=== PATIENT | female | born 1995 ===

== ENCOUNTER 2017-08-25 17:58 | Inpatient (IN) | payer OTHER ==
[~2017-08-25] VITALS: Ht 175.3 cm; Wt 63.4 kg
[~2017-08-25 17:58] MED LIST: Z.0.NO CURRENT MEDS
[2017-08-26 02:30] VITALS: BP 126/65; PULSE 101; RESP 16; TEMP 97.7; O2SAT 98
[2017-08-26 06:00] VITALS: BP 96/50; PULSE 104; RESP 16; TEMP 98; O2SAT 100
[2017-08-26 11:59] VITALS: BP 110/56; PULSE 107; RESP 17; TEMP 98.2; O2SAT 99
[2017-08-26] MEDS: MULTIVIT/MIN/PREN/FOL AC/IRON PRENATAL TAB PO SCH (12:45)
[2017-08-26] MEDS ORDERED: ACETAMINOPHEN 325 MG TAB PO PRN (12:45)
--- NOTE | 2017-08-26 12:47 | HHI.HP ---
Provisional Diagnosis Admission Date Aug 26, 2017 at 02:30 [place] I. Schizophrenia Certification of Person's Competence To Provide Express and Informed Consent I have personally examined Janelle Dickson , a person being served at [facility] on, Aug 26, 2017 12:42. Express and informed consent means consent voluntarily given in writing, by a competent person, after sufficient explanation and disclosure of the subject matter involved to enable the person to make a knowing and willful decision without any element of force, fraud, deceit, duress, or other form of constraint or coercion. This person is 18 years of age or older, is not now known to be incompetent to consent to treatment with a guardian advocate, and does not have a health care surrogate or proxy currently making medical treatment decisions. I have found this person to be one of the following: [] Competent to provide express and informed consent, as defined above, for voluntary admission to this facility and is competent to provide express and informed consent for treatment. He/she has the consistent capacity to make well reasoned, willful, and knowing decisions concerning his or her medical or mental health treatment. The person fully and consistently understands the purpose of the admission for examination/placement and is fully capable of personally exercising all rights assured under [place]xxx] Incompetent to provide express and informed consent to voluntary admission , and this is incompetent to provide express and informed consent to treatment. The person must be transferred to involuntary status and a petition for a guardian advocate filed with the Circuit Court. [] Refusing to provide express and informed consent to voluntary admission but is competent to provide express and informed consent for treatment. The person must be discharged or transferred to involuntary status. Form shall be completed within 24 hours of a person's arrival at the receiving facility and filed in the clinical record of each person: 1. Admitted on a voluntary basis 2. Permitted to provide express and informed consent to his/her own treatment 3. Allowed to transfer from involuntary to voluntary status 4. Prior to permitting a person to consent to his or her own treatment after having been previously found incompetent to consent to treatment. History of Present Illness Capacity: Has Capacity (for medications) HPI Patient is a 22 y/o Irish woman, single, has one child who lives with the child's father, unemployed on SSI, previously homeless recently living with aunt, past psychiatric history of schizophrenia, multiple psychiatric admissions , prior suicide attempts, history of aggressive behavior, who was brought in under [place] Act for auditory hallucinations, responding to internal stimuli, endorsing suicidal ideations which she was admitted to the inpatient psychiatry unit for further evaluation and management. As per [place] act, patient endorsing auditory hallucinations, responding to internal stimuli, states "just want to rest in peace", passive SI, noncompliant with medications and follow up. Patient was found lying on hospital bed, calm and superficially cooperative and noted to be somewhat irritable during interview. Patient states that she had been living in the streets for 6 years and recently moved in with her aunt several weeks ago and states that she didn't feel comfortable there. She reports having left the aunt's home two days ago walked out of the house in [place] and had called 911 which brought her to the hospital. She states having had SI recently but also states wanting to be "comfortable...I don't have any money". When asked about perceptual disturbances she states "I don't know" but noted to be internally preoccupied and also endorsing paranoid delusions. Collateral information was obtained from patient's mother, Nena Leon, who is patient's payee. She states that recently the patient had been having "hallucinations and has been out of it". she mentions that the patient had been staying with her sister and recently they had an argument about smoking cigarettes when the patient left the home walking. She mentions that [place] '[place] and were concerned for the patient's safety, especially being and called 911. Family psychiatric history: "I don't know" Past psychiatric history: prior psychiatric diagnosis of schizophrenia, multiple psychiatric admissions, previous suicide attempts, recent treatment include haldol decanoate 100-150mg every 3-4 weeks but most recently 100mg [id number], last received in July @ [facility]. Substance use history: mauro Past medical history: currently 24 weeks Allergies: NKDA Social history: single, has one child who lives with the child's father, unemployed on SSI (mother is payee), recently living with aunt but homeless prior. Review of Systems Except as stated in HPI: all other systems reviewed are Neg Past Psych History Violence risk - others (6 mos) elevated due to history of aggressive behavior Violence risk - self (6 mos) elevated due to current SI Substance Abuse History Drugs/Alcohol past 12 months denies Past Family Social History Coded Allergies: No Known Allergies (Unverified Allergy, Unknown, 08/26/17) Reported Medications Miscellaneous (No Current Meds) Misc 10/23/11 Current Medications Medications (Trade) Dose Ordered Sig/Chel Route Start Time Stop Time Status Last Admin (Flu (Quadrivalent) Vaccine Inj) 0.5 ml ONCE ONCE IM 08/27/17 10:00 08/27/17 10:01 (Haldol) 5 mg BID PO 08/26/17 12:45 UNV (Benadryl) 50 mg Q6HR PRN PO 08/26/17 12:45 UNV Family Psych History "I don't know" Social History single, has one child who lives with the child's father, unemployed on [employer] ( mother is payee), recently living with aunt but homeless prior. Patient's Strengths (min. 2) verbal and communicative Physical Exam Not noted to be in acute distress, no gross motor abnormalities, no tremor or EPS, no psychomotor agitation or retardation. Vital Signs Vital Signs Date Time Temp Pulse Resp B/P (MAP) Pulse Ox O2 Delivery O2 Flow Rate FiO2 08/26/17 11:59 98.2 107 17 110/56 (74) 99 I/O 08/26/17 08/26/17 08/27/17 08:00 16:00 00:00 Intake Total 480 ml Balance 480 ml Mental Status Examination Appearance: Disheveled Consciousness: Alert Orientation: Person, Place, Date/Time Motor Activity: Normal gait Speech: Unremarkable Language: Adequate Fund of Knowledge: Inadequate Attention and Concentration: Inadequate Memory: Unremarkable Mood: Irritable Affect: Irritable Thought Process & Associations: Other (concrete) Thought Content: Hallucinations, Thought blocking, Delusional Hallucination Type: Auditory Delusion Type: Paranoid Suicidal Ideation: Yes Suicidal Plan: No Suicidal Intention: No Homicidal Ideation: No Homicidal Plan: No Homicidal Intention: No Insight: Poor Judgment: Poor Assessment & Plan Problem List: (1) Schizophrenia ICD Codes: F20.9 - Schizophrenia, unspecified Assessment & Plan Estimated LOS: 5-7 days. Patient is a 22 y/o Irish woman, single, homeless, who carries a diagnosis of schizophrenia, previous psychiatric admissions, prior suicide attempts, currently 24 weeks , who was brought in under [place] Act due to auditory hallucinations, suicidal ideations in the context of nonadherence to medications and currently acutely psychotic with noted responding to internal stimuli and thought blocking which she require inpatient psychiatric stabilization. Will resume Haldol 5mg PO BID for psychosis, diphenhydramine 50mg q6hrs as needed for EPS, hydroxyzine 50mg q6hrs as needed for anxiety. Will request OB consult for follow up for . Continue vitamins. Collateral information pending, attempted to contact patient's Aunt, Johanna Dickson [phone], but unsuccessful. Monitor mood and behavior. Discharge planning in progress. Discharge Planning To be determined Pedro Narvaez MD Aug 26, 2017 12:47
[2017-08-26] MEDS: HALOPERIDOL 5 MG TAB PO SCH ×2 (13:45→21:00)
--- NOTE | 2017-08-26 14:28 | PD.PSY.CON ---
Provisional Diagnosis Admission Date Aug 26, 2017 at 02:30 [place] I. Schizophrenia History of Present Illness Service Psychiatry Consult Requested By Psychiatry Reason for Consult Second opinion Primary Care Physician Unknown HPI Patient is a 22 y/o American woman, single, has one child who lives with the child's father, unemployed on SSI, previously homeless recently living with aunt, past psychiatric history of schizophrenia, multiple psychiatric admissions , prior suicide attempts, history of aggressive behavior, who was brought in under [place] Act for auditory hallucinations, responding to internal stimuli, endorsing suicidal ideations which she was admitted to the inpatient psychiatry unit for further evaluation and management. As per [place] act, patient endorsing auditory hallucinations, responding to internal stimuli, states "just want to rest in peace", passive SI, noncompliant with medications and follow up. Patient was found lying on hospital bed, calm and superficially cooperative and noted to be somewhat irritable during interview. Patient states that she had been living in the streets for 6 years and recently moved in with her aunt several weeks ago and states that she didn't feel comfortable there. She reports having left the aunt's home two days ago walked out of the house in [place] and had called 911 which brought her to the hospital. She states having had SI recently but also states wanting to be "comfortable...I don't have any money". When asked about perceptual disturbances she states "I don't know" but noted to be internally preoccupied and also endorsing paranoid delusions. Collateral information was obtained from patient's mother, Nena Leon, who is patient's payee. She states that recently the patient had been having "hallucinations and has been out of it". she mentions that the patient had been staying with her sister and recently they had an argument about smoking cigarettes when the patient left the home walking. She mentions that the sister 's [place] and were concerned for the patient's safety, especially being and called 911. The patient is a 22-year-old distended woman, domiciled in [place] with her significant mother, she is unemployed, with psychiatric history of schizophrenia, multiple psychiatric hospitalizations, previous suicidal attempts , history of poor impulse control, aggressive behavior, no significant medical history other than 24 weeks of , who was brought on the [place] at to the hospital due to commanding type auditory hallucinations. She was consulted to me for second opinion. On psychiatric evaluation the patient was found in her room in the 2600 unit. The patient was calm, cooperative, but suspicious. The patient initially states that she does not know the reason she is in this hospital. She says that she is "but I delivered my baby yesterday". She reports that she has been hearing voices "I do not know exactly why they are telling". Patient seems to be internally preoccupied, paranoid, with bizarre behavior in the unit. Review of Systems Constitutional: DENIES: Diaphoretic episodes, Fatigue, Fever, Weight gain, Weight loss, Chills, Dizziness, Change in appetite, Night Sweats Endocrine: DENIES: Abnorml menstrual pattern, Heat/cold intolerance, Polydipsia , Polyuria, Polyphagia Eyes: DENIES: Blurred vision, Diplopia, Eye inflammation, Eye pain, Vision loss , Photosensitivity, Double Vision Cardiovascular: DENIES: Chest pain, Palpitations, Syncope, Dyspnea on Exertion , PND, Lower Extremity Edema, Orthopnea, Claudication Gastrointestinal: DENIES: Abdominal pain, Black stools, Bloody stools, Constipation, Diarrhea, Nausea, Vomiting, Difficulty Swallowing, Anorexia Genitourinary: DENIES: Abnormal vaginal bleeding, Dysmenorrhea, Dyspareunia, Sexual dysfunction, Urinary frequency, Urinary incontinence, Urgency, Hematuria , Dysuria, Nocturia, Vaginal discharge Musculoskeletal: DENIES: Joint pain, Muscle aches, Stiffness, Joint Swelling, Back pain, Neck pain Integumentary: DENIES: Abnormal pigmentation, Pruritus, Rash, Nail changes, Breast masses, Breast skin changes, Nipple discharge Hematologic/lymphatic: DENIES: Bruising, Lymphadenopathy Immunologic/allergic: DENIES: Eczema, Urticaria Neurologic: DENIES: Abnormal gait, Headache, Localized weakness, Paresthesias, Seizures, Speech Problems, Tremor, Poor Balance Psychiatric: COMPLAINS OF: Hallucinations, Delusions Past Family Social History Coded Allergies: No Known Allergies (Unverified Allergy, Unknown, 08/26/17) Reported Medications Miscellaneous (No Current Meds) Misc 10/23/11 Current Medications Medications (Trade) Dose Ordered Sig/Chel Route Start Time Stop Time Status Last Admin (Flu (Quadrivalent) Vaccine Inj) 0.5 ml ONCE ONCE IM 08/27/17 10:00 08/27/17 10:01 (Haldol) 5 mg BID PO 08/26/17 12:45 08/26/17 13:45 (Benadryl) 50 mg Q6HR PRN PO 08/26/17 12:45 (Stuartnatal Plus 3 ) 1 tab DAILY PO 08/26/17 12:45 (Tylenol) 650 mg Q4H PRN PO 08/26/17 12:45 Family Psych History No family psychiatric history Social History Patient was born and raised in [place], her parents are from [place], she lives with her significant other in [place], she is unemployed, her highest level of education is ninth grade Patient's Strengths (min. 2) verbal and communicative Physical Exam Vital Signs Vital Signs Date Time Temp Pulse Resp B/P (MAP) Pulse Ox O2 Delivery O2 Flow Rate FiO2 08/26/17 11:59 98.2 107 17 110/56 (74) 99 I/O 08/26/17 08/26/17 08/27/17 08:00 16:00 00:00 Intake Total 480 ml Balance 480 ml Mental Status Examination Appearance: Disheveled Consciousness: Alert Orientation: Person, Place, Date/Time Motor Activity: Normal gait Speech: Unremarkable Language: Adequate Fund of Knowledge: Inadequate Attention and Concentration: Inadequate Memory: Unremarkable Mood: Irritable Affect: Irritable Thought Process & Associations: Other (concrete) Thought Content: Hallucinations, Thought blocking, Delusional Hallucination Type: Auditory Delusion Type: Paranoid Suicidal Ideation: Yes Suicidal Plan: No Suicidal Intention: No Homicidal Ideation: No Homicidal Plan: No Homicidal Intention: No Insight: Poor Judgment: Poor Assessment & Plan Problem List: (1) Schizophrenia ICD Codes: F20.9 - Schizophrenia, unspecified Assessment & Plan: I have seen and examined this patient for second opinion, reviewed documentation, discussed this case personally with Dr. Narvaez, I agree and concur with his assessment and plan. Consult appreciated. Assessment & Plan Estimated LOS: Rahul Sandhu MD Aug 26, 2017 14:28
--- NOTE | 2017-08-26 16:24 | PD.CONS ---
HPI Chief Complaint Psychiatric admission, OB patient Date Seen: Aug 26, 2017 Time Seen: 16:04 Travel History International Travel<30 Days: No Contact w/Intl Traveler<30Days: No History of Present Illness HPI Patient is a 22 y/o [place] female at approximately 20 weeks gestation who presented to hospital under [place] Act for schizophrenia management. OB consultation requesting given patient is with no care. LMP "I don't know." Patient states she had had US but does not know where or when. She denies having an OB provider. She denies leakage of fluid, vaginal bleeding, and contractions. She is unsure if she feels baby moving. She denies ORELLANA/N/V/D/fever/sick contacts/SOB/calf pain/ dizziness/seeing spots. Psychiatric provider notes reviewed. Para: 1 : 3 Last Menstrual Period: Aug 26, 2017 Miscarriage: 1 History Past Medical History Narrative Medical Schizophrenia Obstetric History Obstetric History G1: section due to "fever" in mother. Her child is cared for by father. G2: miscarriage, she thinks 2nd trimester G3: current, no PNC Past Surgical History Narrative Surgical CS x 1 Family History Family History: Negative Social History Alcohol Use: No Tobacco Use: No Substance Abuse: No Allergies-Medications (Allergen,Severity, Reaction): Coded Allergies: No Known Allergies (Unverified Allergy, Unknown, 08/26/17) Home Meds Reported Medications Miscellaneous (No Current Meds) Misc 10/23/11 Review of Systems ROS Limitations: Altered Mental Status Physical Exam Vital Signs Date Time Temp Pulse Resp B/P (MAP) Pulse Ox O2 Delivery O2 Flow Rate FiO2 08/26/17 11:59 98.2 107 17 110/56 (74) 99 08/26/17 06:00 98.0 104 16 96/50 (65) 100 08/26/17 02:30 97.7 101 16 126/65 (85) 98 Narrative GENERAL: Well-nourished, well-developed patient. SKIN: Warm and dry. RESPIRATORY: Easy work of breathing. No accessory muscle use. BREASTS: Bilateral exam showed no masses, no retractions, no nipple discharge. ABDOMEN/GI: Abdomen soft, non-tender, bowel sounds present, no rebound, no guarding. Gravid with soft uterus, fundus 1-2 cm below umbilicus. GENITOURINARY: deferred External Genitalia: intact and normal in appearance FHR: 160 EXTREMITIES: No cyanosis or edema. Data Data Vital Signs Reviewed: Yes (wnl in chart) Orders Orders Admit To Inpatient Psych (08/26/17 ) Vital Signs (Adult) NEISHA.Q12H.E (08/26/17 04:45) Activity Oob Ad Sendy (08/26/17 04:45) Level Of Observation (Psych) (08/26/17 04:45) Aims-Abnormal Invol Move Scale ONCE (08/26/17 04:45) Diet Regular Basic (08/26/17 Breakfast) Physician Name Changes (08/26/17 ) Influenza (Quad) Vaccine Inj (Flu (Quadr (08/27/17 10:00) Consult [facility] [employer] (08/26/17 ) (Hub Use Only)Inp Phy Cons/Ref (08/26/17 ) Haloperidol (Haldol) (08/26/17 12:45) Diphenhydramine (Benadryl) (08/26/17 12:45) Consult Obstetrics (08/26/17 ) Soysygyr-Fze-Oawaw-Iron Prenat (Stuartna (08/26/17 12:45) Acetaminophen (Tylenol) (08/26/17 12:45) Consult Psychiatry (08/26/17 ) (Hub Use Only)Inp Phy Cons/Ref (08/26/17 ) (Hub Use Only)Inp Phy Cons/Ref (08/26/17 ) Rubella Immune Status (08/26/17 16:01) Hepatitis Profile (08/26/17 16:01) Rapid Plasma Regin (Rpr) W Ttr (08/26/17 16:01) Type And Screen (08/26/17 16:01) Complete Blood Count With Diff (08/26/17 16:01) Special Serology (08/26/17 16:01) Us Ob Pelvis >14 Wks Fetus (08/26/17 ) MDM Medical Record Reviewed: Yes Narrative Course / MDM Patient is a 22 year old who presented under [place] Act for psychiatric admission and currently . OB Team consulted for workup. Intrauterine : FHR 160 with Doppler No labor signs No care but states due date of 12/02, which would placed her at 26 weeks (not c/w size) Will obtain labs to include CBC, infectious disease labs Will obtain dating ultrasound Patient will need follow up with OB provider after stable for discharge, needs Pap and routine care, will place information for [facility] in patient's chart Obtain CS records if patient can report where she had it (she thinks [facility]) Schizophrenia: On Haldol 5mg BID, Benadryl per psych team Avoid teratogenic medications Mgmt per primary team OB will follow while inpt, thank you for consult. SUSHANT Pienda Admitting diagnosis: Schizoaffective disorder Pamela Valenzuela MD R2 Aug 26, 2017 16:24
[2017-08-26 17:51] LABS: AUTOMATED NEUTROPHIL # 4.8 TH/MM3 (1.8-7.7); BASOPHIL % 0.3 % (0.0-2.0); EOSINOPHIL # 0.1 TH/MM3 (0-0.4); HEMATOCRIT 34.5 % (35.0-46.0); HEMOGLOBIN 11.6 GM/DL (11.6-15.3); LYMPH % 22.2 % (9.0-44.0); LYMPHOCYTE # 1.6 TH/MM3 (1.0-4.8); MEAN CELL VOLUME 86.4 FL (80.0-100.0); MEAN CORPUSCULAR HEMOGLOBIN 28.9 PG (27.0-34.0); MEAN CORPUSCULAR HGB CONC 33.5 % (32.0-36.0); MEAN PLATELET VOLUME 9.9 FL (7.0-11.0); MONO % 8.7 % (0.0-8.0); MONOCYTE # 0.6 TH/MM3 (0-0.9); NEUT % 67.8 % (16.0-70.0); PLATELET COUNT 155 TH/MM3 (150-450); RED BLOOD COUNT 3.99 MIL/MM3 (4.00-5.30); RED CELL DISTRIBUTION WIDTH 13.8 % (11.6-17.2); WHITE BLOOD COUNT 7.1 TH/MM3 (4.0-11.0)
[2017-08-26 18:23] VITALS: BP 115/66; PULSE 108; RESP 18; TEMP 97.8; O2SAT 99
[2017-08-27 06:06] VITALS: BP 122/73; PULSE 118; RESP 20; TEMP 98.5
[2017-08-27] MEDS: HALOPERIDOL 5 MG TAB PO SCH ×2 (09:18→20:44)
[2017-08-27] MEDS: MULTIVIT/MIN/PREN/FOL AC/IRON PRENATAL TAB PO SCH (09:19)
[2017-08-27] MEDS ORDERED: INFLUENZA VIRUS VACCINE (QUADRIVALENT) 0.5 ML SYR IM ONE (10:00)
--- NOTE | 2017-08-27 11:25 | PD.TTN ---
Patient Problems 1. Discharge planning 2. Medication compliance 3. Knowledge deficit 4. Lack of coping skills Progress Toward Goals Provider Present: Dr. Telma Narvaez Provider Input: 08/27/17 - Patient is 24 weeks , psychotic, and has a history of Schizophrenia. Patient does not know who the father of her baby is. Psychiatric Counselors Present: JOSE Cole Psych Therapist Input: 08/27/17 - Counselor will meet with this patient today. Group Spec/RT/OT/ALEXANDER Present: NISHA Servin Group Spec/RT/OT/ALEXANDER Input: 08/27/17 - New admission. Discharge Plan [facility] 08/27/17 - Patient will follow-up with [facility]. Documentation Scribe: JOSE Cole Date Resolved: Aug 27, 2017 Juanita Minor Aug 27, 2017 11:25
[2017-08-27 17:11] VITALS: BP 125/78; PULSE 81; RESP 18; TEMP 98.4; O2SAT 99
--- NOTE | 2017-08-27 20:01 | HHI.PYPN ---
Subjective Remarks Patient seen for follow up; chart reviewed. Discussion with nursing staff reported that the patient compliant with medications, requesting discharge. Patient found ambulating on the unit, noted to be calm and cooperative. She states feeling tired, mood being "good", spoke with mother over the phone and states planning on going to live with her upon discharge. She reports having AH but denies at time of interview. Review of Systems Except as stated in HPI: all other systems reviewed are Neg Mental Status Examination Appearance: Disheveled Consciousness: Alert Orientation: Person, Place, Date/Time Motor Activity: Normal gait Speech: Unremarkable Language: Adequate Fund of Knowledge: Inadequate Attention and Concentration: Inadequate Memory: Unremarkable Mood: Irritable Affect: Irritable (less so today) Thought Process & Associations: Other (concrete) Thought Content: Hallucinations, Thought blocking (less so today), Delusional Hallucination Type: Auditory Delusion Type: Paranoid Suicidal Ideation: Yes Suicidal Plan: No Suicidal Intention: No Homicidal Ideation: No Homicidal Plan: No Homicidal Intention: No Insight: Poor Judgment: Poor Results Vitals/IOs Vital Signs Date Time Temp Pulse Resp B/P (MAP) Pulse Ox O2 Delivery O2 Flow Rate FiO2 08/27/17 17:11 98.4 81 18 125/78 (94) 99 Assessment & Plan Problem List: (1) Schizophrenia ICD Codes: F20.9 - Schizophrenia, unspecified Assessment & Plan Patient continues with perceptual disturbances, compliant with treatment, OB consult input appreciated. Patient to continue current treatment, continue recommendations as per OB consult, continue to monitor mood and behavior. Discharge planning in progress. Justification for Cont. Inpt. At risk for further decompensation at lower level of care. Discharge Planning To be determined Pedro Narvaez MD Aug 27, 2017 20:01
[2017-08-28 05:53] VITALS: BP 100/55; PULSE 94; RESP 14; TEMP 98.4; O2SAT 98
[2017-08-28] MEDS: MULTIVIT/MIN/PREN/FOL AC/IRON PRENATAL TAB PO SCH (09:12)
[2017-08-28] MEDS: HALOPERIDOL 5 MG TAB PO SCH (09:12)
--- NOTE | 2017-08-28 10:52 | HHI.PYPN ---
Subjective Remarks Patient seen for follow up; chart reviewed. Discussion with nursing staff reported that the patient guarded with staff but compliant with treatment. Patient was found heavily on the unit noted B, cooperative. Patient states that she has "good news and not so good news". She states the good news is that she feels her medications are helping her feel more stable but that not so good news is that she is trying to get hold of her and where she is currently residing in. Patient reports sleeping well denying any physical complaints at this time continues to endorse occasional auditory hallucinations of her mother' s voice but also noted to have some paranoia with regards to her aunt and uncle stating that she fears that he might do congregational on her. Review of Systems Except as stated in HPI: all other systems reviewed are Neg Mental Status Examination Appearance: Disheveled Consciousness: Alert Orientation: Person, Place, Date/Time Motor Activity: Normal gait Speech: Unremarkable Language: Adequate Fund of Knowledge: Inadequate Attention and Concentration: Inadequate Memory: Unremarkable Mood: Appropriate Affect: Other (Less guarded) Thought Process & Associations: Other (concrete) Thought Content: Hallucinations, Thought blocking (less so today) Hallucination Type: Auditory Delusion Type: Paranoid Suicidal Ideation: Yes Suicidal Plan: No Suicidal Intention: No Homicidal Ideation: No Homicidal Plan: No Homicidal Intention: No Insight: Poor Judgment: Poor Results Vitals/IOs Vital Signs Date Time Temp Pulse Resp B/P (MAP) Pulse Ox O2 Delivery O2 Flow Rate FiO2 08/28/17 05:53 98.4 94 14 100/55 (70) 98 Assessment & Plan Problem List: (1) Schizophrenia ICD Codes: F20.9 - Schizophrenia, unspecified Assessment & Plan Patient at this time noted to be more engaging in interview, less paranoid although still expressing paranoia that her aunt and uncle may perform congregational on her, continues to have occasional auditory hallucinations of her mother's voice, continue noted to be guarded and disorganized but improving. Spoke to patient's mother who plans on visiting patient this evening along with patient' s aunt to assess progress. We will increase Haldol to 5 mg a.m./2 mg at bedtime for psychosis. Continue to monitor with behavior. Discharge planning in progress. Justification for Cont. Inpt. At risk of further decompensation at lower level of care. Pedro Narvaez MD Aug 28, 2017 10:52
[2017-08-28 17:29] VITALS: BP 129/71; PULSE 74; RESP 18; TEMP 98; O2SAT 100
[2017-08-28] MEDS: HALOPERIDOL 10 MG TAB PO SCH (20:33)
[2017-08-29 05:36] VITALS: BP 100/60; PULSE 92; RESP 16; TEMP 98; O2SAT 98
[2017-08-29] MEDS: MULTIVIT/MIN/PREN/FOL AC/IRON PRENATAL TAB PO SCH (09:05)
[2017-08-29] MEDS: HALOPERIDOL 5 MG TAB PO SCH (09:06)
--- NOTE | 2017-08-29 11:04 | HHI.PYPN ---
Subjective Remarks Patient seen for follow up; chart reviewed. Discussion with nursing staff reported that the patient had visit with family who felt patient was not at baseline. Patient seen ambulating in the hallway, noted to be somewhat restless and anxious to speak to repairer typewriter. Patient states that she had visited with her mother and aunt who reportedly agreed that she could go back to live with her mother over the weekend then to her aunt's home thereafter. Patient states sleeping well, eating and drinking well, no pain or dysuria, nor vaginal bleeding. She states feeling her baby move. Reports good mood, as well as feeling anxious to go home. She admitted to having AH this morning and flashbacks of her brother but did not elaborate stating they were "good flashbacks". She denies SI or HI. Review of Systems Except as stated in HPI: all other systems reviewed are Neg Mental Status Examination Appearance: Disheveled Consciousness: Alert Orientation: Person, Place, Date/Time Motor Activity: Normal gait Speech: Unremarkable Language: Adequate Fund of Knowledge: Inadequate Attention and Concentration: Inadequate Memory: Unremarkable Mood: Appropriate Affect: Other (restricted) Thought Process & Associations: Other (concrete) Thought Content: Hallucinations, Thought blocking (lessening) Hallucination Type: Auditory Delusion Type: Paranoid Suicidal Ideation: Yes Suicidal Plan: No Suicidal Intention: No Homicidal Ideation: No Homicidal Plan: No Homicidal Intention: No Insight: Poor Judgment: Poor Results Vitals/IOs Vital Signs Date Time Temp Pulse Resp B/P (MAP) Pulse Ox O2 Delivery O2 Flow Rate FiO2 08/29/17 05:36 98.0 92 16 100/60 (73) 98 Assessment & Plan Problem List: (1) Schizophrenia ICD Codes: F20.9 - Schizophrenia, unspecified Assessment & Plan Patient continues to be disorganized, paranoid, with auditory hallucinations but appears to be lessening. Family visit reported that patient is not a baseline at this time. Haldol recently increased yesterday, will continue current dose for now. Continue to monitor mood and behavior. Discharge planning in progress. Justification for Cont. Inpt. At risk for decompensation at lower level of care. Pedro Narvaez MD Aug 29, 2017 11:04
[2017-08-29 17:29] VITALS: BP 114/60; PULSE 102; RESP 17; TEMP 98; O2SAT 97
[2017-08-29] MEDS: HALOPERIDOL 10 MG TAB PO SCH (21:10)
[2017-08-30 05:48] VITALS: BP 107/59; PULSE 72; RESP 16; TEMP 97.5
[2017-08-30] MEDS: MULTIVIT/MIN/PREN/FOL AC/IRON PRENATAL TAB PO SCH (09:22)
[2017-08-30] MEDS: HALOPERIDOL 5 MG TAB PO SCH (09:22)
--- NOTE | 2017-08-30 14:11 | HHI.PYPN ---
Subjective Remarks Patient was seen and case discussed with nursing. Patient was evaluated by the MOLDING MACHINE TENDER service who diagnosed her with a UTI in this and started antibiotics. Patient is pleasant and cooperative with exam. No delusions were elicited today. She denies auditory or visual hallucinations. He is behaving well on the unit. Denies suicidal or homicidal ideation intent or plan. Tolerating medications well Mental Status Examination Appearance: Disheveled Consciousness: Alert Orientation: Person, Place, Date/Time Motor Activity: Normal gait Speech: Unremarkable Language: Adequate Fund of Knowledge: Inadequate Attention and Concentration: Inadequate Memory: Unremarkable Mood: Appropriate Affect: Other (restricted) Thought Process & Associations: Other (concrete) Thought Content: Hallucinations, Thought blocking (lessening) Hallucination Type: Auditory Delusion Type: Paranoid Suicidal Ideation: No Suicidal Plan: No Suicidal Intention: No Homicidal Ideation: No Homicidal Plan: No Homicidal Intention: No Insight: Poor Judgment: Poor Results Vitals/IOs Vital Signs Date Time Temp Pulse Resp B/P (MAP) Pulse Ox O2 Delivery O2 Flow Rate FiO2 08/30/17 05:48 97.5 72 16 107/59 (75) 08/29/17 17:29 97 Assessment & Plan Problem List: (1) Schizophrenia ICD Codes: F20.9 - Schizophrenia, unspecified Assessment & Plan Continue current treatment plan Justification for Cont. Inpt. Patient would decompensate in a less restrictive setting Onel Owusu DO Aug 30, 2017 14:11
--- NOTE | 2017-08-30 15:28 | PD.CONS ---
[facility] By Dr Geronimo Reason for Consult Pain in lower back Primary Care Physician No Primary Care Physician Diagnoses: History of Present Illness This is a 22-year-old female with past medical history of schizophrenia, with previous multiple psychiatric admissions and suicide attempts, history of aggressive behavior who was brought in under a M[place] act for auditory hallucinations and endorsing suicidal ideations. The patient is currently 24 weeks and today she complained of sharp pain in the lower back which extended surrounding into the upper thighs. The patient states that the pain has subsided by now. RN was at bedside states that the patient was sent to be seen by the obstetricians who diagnosed her with a UTI and started her on an antibiotic. Patient currently denies any chest pain, shortness of breath, fevers, chills, nausea vomiting or abdominal pain and the back pain has subsided. Review of Systems As per HPI, other systems reviewed by me and negative. Past Family Social History Allergies: Coded Allergies: No Known Allergies (Unverified Allergy, Unknown, 08/26/17) Past Medical History Schizophrenia Suicidal attempts Past Surgical History Reported Medications Reported Meds & Active Scripts Active Reported No Current Meds (Miscellaneous Medication) Misc Active Ordered Medications Current Medications Medications (Trade) Dose Ordered Sig/Chel Route Start Time Stop Time Status Last Admin (Benadryl) 50 mg Q6HR PRN PO 08/26/17 12:45 08/30/17 16:44 (Stuartnatal Plus 3 ) 1 tab DAILY PO 08/26/17 12:45 08/30/17 09:22 (Tylenol) 650 mg Q4H PRN PO 08/26/17 12:45 (Haldol) 5 mg DAILY PO 08/29/17 09:00 08/30/17 09:22 (Haldol) 10 mg HS PO 08/28/17 21:00 08/29/17 21:10 (Macrobid) 100 mg BID PO 08/30/17 14:00 09/05/17 21:01 08/30/17 16:18 Family History Her aunt has breast cancer. Grandmother has diabetes mellitus. Social History Patient states she smokes 5-6 cigarettes per day. Denies alcohol intake. Denies illicit drug use. The patient is a single mom and has a daughter. Physical Exam Vital Signs Vital Signs Date Time Temp Pulse Resp B/P (MAP) Pulse Ox O2 Delivery O2 Flow Rate FiO2 08/30/17 05:48 97.5 72 16 107/59 (75) 08/29/17 17:29 98.0 102 17 114/60 (78) 97 Physical Exam GENERAL: This is a well-nourished, well-developed patient, in no apparent distress. SKIN: No rashes, ecchymoses or lesions. Cool and dry. HEAD: Atraumatic. Normocephalic. No temporal or scalp tenderness. EYES: Pupils equal round and reactive. Extraocular motions intact. No scleral icterus. No injection or drainage. ENT: Nose without bleeding, purulent drainage or septal hematoma. Throat without erythema, tonsillar hypertrophy or exudate. Uvula midline. Airway patent. NECK: Trachea midline. No JVD or lymphadenopathy. Supple, nontender, no meningeal signs. CARDIOVASCULAR: Regular rate and rhythm without murmurs, gallops, or rubs. RESPIRATORY: Clear to auscultation. Breath sounds equal bilaterally. No wheezes , rales, or rhonchi. GASTROINTESTINAL: Abdomen soft, non-tender, nondistended. No hepato-splenomegaly , or palpable masses. No guarding. MUSCULOSKELETAL: Extremities without clubbing, cyanosis, or edema. No joint tenderness, effusion, or edema noted. No calf tenderness. Negative Homans sign bilaterally. NEUROLOGICAL: Awake and alert. Cranial nerves II through XII intact. Motor and sensory grossly within normal limits. Five out of 5 muscle strength in all muscle groups. Normal speech. Result Diagram: 08/26/17 1608 Assessment and Plan Problem List: (1) Schizophrenia ICD Code: F20.9 - Schizophrenia, unspecified (2) Back pain ICD Code: M54.9 - Dorsalgia, unspecified Assessment and Plan Psychiatric management as per psychiatric. Patient currently on Haldol. Back pain has subsided but suspect the patient could possibly have a UTI. Continue nitrofurantoin as ordered by SENIOR COMMUNICATIONS SPECIALIST. If oral pain medications are needed, I will defer the treatment of pain to OB. Instructed patient to keep herself hydrated and drink plenty of fluids. We will check urinalysis. Encourage simulation for DVT prophylaxis. Code Status Full code Discussed Condition With RN, patient. Problem Qualifiers (1) Schizophrenia: Qualified Codes: F20.9 - Schizophrenia, unspecified (2) Back pain: Qualified Codes: M54.5 - Low back pain Lee Dawkins MD Aug 30, 2017 15:28
[2017-08-30] MEDS: NITROFURANTOIN MONOHYD MACROCR 100 MG CAP PO SCH ×2 (16:18→20:04)
[2017-08-30 16:36] VITALS: BP 108/62; PULSE 102; RESP 18; TEMP 98.2; O2SAT 100
[2017-08-30] MEDS: diphenhydrAMINE HCL 50 MG CAP PO PRN (16:44)
[2017-08-30] MEDS: HALOPERIDOL 10 MG TAB PO SCH (20:04)
[2017-08-31 05:16] VITALS: BP 100/59; PULSE 98; RESP 16; TEMP 97.2; O2SAT 99
[2017-08-31] MEDS: NITROFURANTOIN MONOHYD MACROCR 100 MG CAP PO SCH ×2 (08:41→21:01)
[2017-08-31] MEDS: MULTIVIT/MIN/PREN/FOL AC/IRON PRENATAL TAB PO SCH (08:41)
[2017-08-31] MEDS: HALOPERIDOL 5 MG TAB PO SCH (08:41)
--- NOTE | 2017-08-31 12:18 | HHI.PR ---
Subjective Remarks Follow up on patient with schizophrenia, UTI, . Patient seen and examined. Patient states she feels better. She reports resolution of her back and leg pain. She denies any fever or chills. She denies any chest pain or shortness of breath. She denies any dysuria or hematuria. Discussed with nursing staff, no acute issues noted. Objective Vitals Vital Signs Date Time Temp Pulse Resp B/P (MAP) Pulse Ox O2 Delivery O2 Flow Rate FiO2 08/31/17 05:16 97.2 98 16 100/59 (73) 99 08/30/17 16:36 98.2 102 18 108/62 (77) 100 I/O 08/30/17 08/30/17 08/30/17 08/31/17 08/31/17 08/31/17 07:00 15:00 23:00 07:00 15:00 23:00 Intake Total 240 ml Balance 240 ml Intake Oral 240 ml Objective Remarks GENERAL: This is a well-nourished, well-developed young female patient, in no apparent distress. Awake and alert. Lying in bed. SKIN: Cool and dry. HEAD: Atraumatic. Normocephalic. EYES: Pupils equal round and reactive. Extraocular motions intact. No scleral icterus. No injection or drainage. ENT: Nose without bleeding or purulent drainage. Airway patent. MMM. NECK: Trachea midline. CARDIOVASCULAR: Regular rate and rhythm without murmurs, gallops, or rubs. RESPIRATORY: Nonlabored. Clear to auscultation. Breath sounds equal bilaterally. No wheezes, rales, or rhonchi. GASTROINTESTINAL: Abdomen soft, non-tender, (+)BS, fundus 1-2cm below umbilicus. MUSCULOSKELETAL: Extremities without clubbing, cyanosis, or edema. No calf tenderness. NEUROLOGICAL: Awake and alert. Cranial nerves II through XII grossly intact. Motor and sensory grossly within normal limits. Normal speech. PSYCHIATRIC: Calm and cooperative. Medications and IVs Current Medications Medications (Trade) Dose Ordered Sig/Chel Route Start Time Stop Time Status Last Admin (Benadryl) 50 mg Q6HR PRN PO 08/26/17 12:45 08/30/17 16:44 (Stuartnatal Plus 3 ) 1 tab DAILY PO 08/26/17 12:45 08/31/17 08:41 (Tylenol) 650 mg Q4H PRN PO 08/26/17 12:45 (Haldol) 5 mg DAILY PO 08/29/17 09:00 08/31/17 08:41 (Haldol) 10 mg HS PO 08/28/17 21:00 08/30/17 20:04 (Macrobid) 100 mg BID PO 08/30/17 14:00 09/05/17 21:01 08/31/17 08:41 A/P Problem List: (1) Schizophrenia ICD Code: F20.9 - Schizophrenia, unspecified (2) Back pain ICD Code: M54.9 - Dorsalgia, unspecified Assessment and Plan 22yo female with PMHX of schizophrenia currently admitted under [place] Act with auditory hallucinations and endorsing suicidal ideations. Schizophrenia Suicidal ideation -management per psychiatric team Back and bilateral leg pain, resolved -suspect 2/2 and/or UTI -defer pain medication treatment to [facility] -OB following UTI -continue on Macrobid as ordered by [facility]IRREL [facility] DVT prophylaxis -ambulation Patient is stable from medicine standpoint. [facility] will sign off for now. Please reconsult if needed. Problem Qualifiers (1) Schizophrenia: Qualified Codes: F20.9 - Schizophrenia, unspecified (2) Back pain: Qualified Codes: M54.5 - Low back pain Briseida Cabrales Aug 31, 2017 12:18
--- NOTE | 2017-08-31 12:38 | HHI.PYPN ---
Subjective Remarks Patient was seen and case discussed with nursing. Patient is pleasant and cooperative with exam. She feels that her mood is "stable." She is no longer angry. Nursing confirms this behavior. He is compliant with the medications. Mental Status Examination Appearance: Disheveled Consciousness: Alert Orientation: Person, Place, Date/Time Motor Activity: Normal gait Speech: Unremarkable Language: Adequate Fund of Knowledge: Inadequate Attention and Concentration: Inadequate Memory: Unremarkable Mood: Appropriate Affect: Other (restricted) Thought Process & Associations: Other (concrete) Thought Content: Appropriate Hallucination Type: Auditory (Denies) Delusion Type: None Suicidal Ideation: No Suicidal Plan: No Suicidal Intention: No Homicidal Ideation: No Homicidal Plan: No Homicidal Intention: No Insight: Poor Judgment: Poor Results Vitals/IOs Vital Signs Date Time Temp Pulse Resp B/P (MAP) Pulse Ox O2 Delivery O2 Flow Rate FiO2 08/31/17 05:16 97.2 98 16 100/59 (73) 99 Intake and Output 08/31/17 08/31/17 09/01/17 08:00 16:00 00:00 Intake Total 240 ml Balance 240 ml Assessment & Plan Problem List: (1) Schizophrenia ICD Codes: F20.9 - Schizophrenia, unspecified Assessment & Plan Continue current treatment plan Justification for Cont. Inpt. Patient would decompensate in a less restrictive setting Problem Qualifiers (1) Schizophrenia: Qualified Codes: F20.9 - Schizophrenia, unspecified Onel Owusu DO Aug 31, 2017 12:38
[2017-08-31 17:43] VITALS: BP 112/62; PULSE 100; RESP 16; TEMP 98; O2SAT 100
[2017-08-31] MEDS: HALOPERIDOL 10 MG TAB PO SCH (21:01)
[2017-08-31] MEDS: diphenhydrAMINE HCL 50 MG CAP PO PRN (21:01)
[2017-09-01 05:55] VITALS: BP 99/54; PULSE 86; RESP 16; TEMP 98.1; O2SAT 94
[2017-09-01] MEDS: NITROFURANTOIN MONOHYD MACROCR 100 MG CAP PO SCH (09:22)
[2017-09-01] MEDS: MULTIVIT/MIN/PREN/FOL AC/IRON PRENATAL TAB PO SCH (09:22)
[2017-09-01] MEDS: HALOPERIDOL 5 MG TAB PO SCH (09:23)
[2017-09-01] MEDS ORDERED: HALO5TAB PO (15:10)
[2017-09-01] MEDS ORDERED: HALO10TA PO (15:10)
[2017-09-01] MEDS ORDERED: NITR100C4 PO (15:10)
[2017-09-01] MEDS ORDERED: PREN29TA PO (15:10)
--- NOTE | 2017-09-01 17:44 | HHI.DS ---
Psychiatry Discharge Summary Inpatient Psychiatric care?: Yes Advance Directive: No Reason Not Provided: Due to Patient Condition Mental Health AdvanceDirective: No Health Care Proxy: No Admission Admission Date Aug 26, 2017 at 02:30 Admission Diagnosis: (1) Schizophrenia ICD Code: F20.9 - Schizophrenia, unspecified Brief History Patient is a 22 y/o French woman, single, has one child who lives with the child's father, unemployed on SSI, previously homeless recently living with aunt, past psychiatric history of schizophrenia, multiple psychiatric admissions , prior suicide attempts, history of aggressive behavior, who was brought in under M[place] Act for auditory hallucinations, responding to internal stimuli, endorsing suicidal ideations which she was admitted to the inpatient psychiatry unit for further evaluation and management. As per Moy act, patient endorsing auditory hallucinations, responding to internal stimuli, states "just want to rest in peace", passive SI, noncompliant with medications and follow up. Patient was found lying on hospital bed, calm and superficially cooperative and noted to be somewhat irritable during interview. Patient states that she had been living in the streets for 6 years and recently moved in with her aunt several weeks ago and states that she didn't feel comfortable there. She reports having left the aunt's home two days ago walked out of the house in [place] and had called 911 which brought her to the hospital. She states having had SI recently but also states wanting to be "comfortable...I don't have any money". When asked about perceptual disturbances she states "I don't know" but noted to be internally preoccupied and also endorsing paranoid delusions. Collateral information was obtained from patient's mother, Nena Leon, who is patient's payee. She states that recently the patient had been having "hallucinations and has been out of it". she mentions that the patient had been staying with her sister and recently they had an argument about smoking cigarettes when the patient left the home walking. She mentions that [place] and were concerned for the patient's safety, especially being and called 911. The patient is a 22-year-old distended woman, domiciled in [place] with her significant mother, she is unemployed, with psychiatric history of schizophrenia, multiple psychiatric hospitalizations, previous suicidal attempts , history of poor impulse control, aggressive behavior, no significant medical history other than 24 weeks of , who was brought on the Moy at to the hospital due to commanding type auditory hallucinations. She was consulted to me for second opinion. On psychiatric evaluation the patient was found in her room in the 2600 unit. The patient was calm, cooperative, but suspicious. The patient initially states that she does not know the reason she is in this hospital. She says that she is "but I delivered my baby yesterday". She reports that she has been hearing voices "I do not know exactly why they are telling". Patient seems to be internally preoccupied, paranoid, with bizarre behavior in the unit. Tobacco Use In Past 30 Days: 5 or More Cigarettes/Day Alcohol Use: Never Hospital Course Patient is a 22 y/o French woman, single, has one child who lives with the child's father, unemployed on [employer], previously homeless recently living with aunt, past psychiatric history of schizophrenia, multiple psychiatric admissions , prior suicide attempts, history of aggressive behavior, who was brought in under [place] Act for auditory hallucinations, responding to internal stimuli, endorsing suicidal ideations which she was admitted to the inpatient psychiatry unit for further evaluation and management. Patient restarted on haloperidol and titrated to 5mg a.m./10mg p.m. which she tolerated well. Patient was noted to have been seclusive initially but more visible throughout admission. She continued with AH and paranoia but progressively decreased throughout admission. Patient was observed by staff to not have had any behavioral disturbances, not having made any suicidal or homicidal statements with progressive improvement of mood through admission and was noted to participate with staff adequately. Patient reported feeling better, future oriented and motivated to re-engage in continuing treatment upon discharge. Upon discharge patient stated that he was feeling good, reported feeling well with the treatment, as well as motivation to continue recommendations and denied any SI, HI, perceptual disturbances or delusions. Collateral from patients mother stated having visited with the patient prior to discharge and feels patient is back at baseline and will have patient stay with her with plan to transition patient over to patients aunts residence which patient will continue to receive support. Weighing the acute, chronic, and protective factors and based on the available evidence, [place] precinct police lieutenant to a reasonable degree of medical certainty that the patient is at low imminent risk of harm to self or others from a mental illness as defined under the Moy act and his level of function is adequate as observed on the unit for planned level of outpatient care. He was counseled regarding warning signs for need to return to the psychiatric emergency room as part of a general safety plan. Patient advised to call 911 or go nearest ED in case of emergency. Patient agreed with plan. Results Blood Pressure 99 / 54 Vital Signs Date Time Temp Pulse Resp B/P (MAP) Pulse Ox O2 Delivery O2 Flow Rate FiO2 09/01/17 05:55 98.1 86 16 99/54 (69) 94 WNL Summary of Procedures none Pending results at discharge: No Medications # of Antipsychotic meds at D/C: 1 Approp Antipsych med options 1 - Minimum of three failed multiple trials of monotherapy. 2 - Documented plan to taper to monotherapy due to previous use of multiple meds OR cross-taper in progress at D/C. 3 - Documentation of augmentation of Clozapine. 4 - Justification other than those listed in allowable values 1-3, document here : Discharge Discharge Date: Sep 01, 2017 Discharge Diagnosis: (1) Schizophrenia ICD Code: F20.9 - Schizophrenia, unspecified Pt Condition on Discharge: Stable Discharge Disposition: Discharge Home Discharge Instructions Diet Instructions: Diet Activities you can perform: Regular-No Restrictions Scheduled Appointment: Rajiv Khalil Act Appointment Date: Sep 03, 2017 Appointment Time: 7:30 a.m Discharge Time > 30 minutes Mental Status Examination Appearance: Disheveled Consciousness: Alert Orientation: Person, Place, Date/Time Motor Activity: Normal gait Speech: Unremarkable Language: Adequate Fund of Knowledge: Inadequate Attention and Concentration: Inadequate Memory: Unremarkable Mood: Appropriate Affect: Appropriate Thought Process & Associations: Intact, Linear Thought Content: Appropriate Hallucination Type: Auditory (Denies) Delusion Type: None Suicidal Ideation: No Suicidal Plan: No Suicidal Intention: No Homicidal Ideation: No Homicidal Plan: No Homicidal Intention: No Insight: Fair Judgment: Impulsive Discharge/Advance Care Plan Health Problems: (1) Schizophrenia Goals to promote your health * To prevent worsening of your condition and complications * To maintain your health at the optimal level Directions to meet your goals Take your medications as prescribed Follow your dietary instruction Follow activity as directed Keep your appointments as scheduled Take your immunizations and boosters as scheduled If your symptoms worsen call your PCP, if no PCP go to Urgent Care Center or Emergency Room For 09/12 questions related to your inpatient stay or results of tests pending at discharge, please contact Dr. Pedro Narvaez at Smoking is Dangerous to Your Health. Avoid second hand smoking Problem Qualifiers (1) Schizophrenia: Qualified Codes: F20.9 - Schizophrenia, unspecified Pedro Narvaez MD Sep 01, 2017 17:44
== END 2017-09-01 17:20 | disposition home or self-care (01) | DRG 781 ==
LOC: H260 08-26 02:30 → UNDODISIN 08-30 11:14
PROVIDERS: ADMIT Student in an Organized Health Care Education/Training Program; ATTEND Student in an Organized Health Care Education/Training Program
DX: O99.342 Other mental disorders complicating pregnancy, second trimester (principal); R45.851 Suicidal ideations; O23.42 Unspecified infection of urinary tract in pregnancy, second trimester; F20.9 Schizophrenia, unspecified; O99.332 Smoking (tobacco) complicating pregnancy, second trimester; Z91.14 Patient's other noncompliance with medication regimen; Z91.5 Personal history of self-harm; Z23 Encounter for immunization; Z3A.24 24 weeks gestation of pregnancy
CPT/HCPCS: 76805; 80074; 85025; 86592; 86703; 86762; 86850; 86900; 86901; Q0163

== ENCOUNTER 2017-08-30 11:16 | Emergency (ER) | payer OTHER ==
[2017-08-30 12:21] LABS: AMORPHOUS SEDIMENT, URINE OCC; BACTERIA, URINE MOD /hpf; BILIRUBIN, URINE NEG (NEG); BLOOD, URINE NEG (NEG); GLUCOSE,URINE NEG (NEG); KETONE, URINE NEG (NEG); NITRITE,URINE NEG (NEG); SQUAMOUS EPITHELIAL CELL URINE 13 /hpf (0-5); URINE COLOR YELLOW (YELLW/STRAW); URINE LEUKOCYTE ESTERASE LARGE (NEG)
--- NOTE | 2017-08-30 12:38 | PD ---
HPI Chief Complaint back pain Date Seen: Aug 30, 2017 Time Seen: 12:22 Travel History International Travel<30 Days: No Contact w/Intl Traveler<30Days: No Known Affected Area: No History of Present Illness HPI 22y/o 23.2wks. She is an inpt currently in psychiatry for bipolar, schizophrenia, and suicidal ideation. She is a poor historian and much of the history is from the chart. She reports back pain which was upper then lower. Denies LOF or VB. No ctx. +FM. Weeks Gestation: 23 Para: 1 : 3 History Past Medical History Narrative Medical bipolar schizophrenia Obstetric History Obstetric History AB x1 CS x1 current Past Surgical History Narrative Surgical CS x1 Family History Family History: Negative Social History Alcohol Use: No Tobacco Use: No Substance Abuse: No Allergies-Medications (Allergen,Severity, Reaction): Coded Allergies: No Known Allergies (Unverified Allergy, Unknown, 08/26/17) Home Meds Reported Medications Miscellaneous (No Current Meds) Misc 10/23/11 Narrative Medication haldol ?annemarieentin PNVs Review of Systems Except as stated in HPI: all other systems reviewed are Neg Physical Exam Narrative General: well developed, well nourished, no acute distress HEENT: normocephalic atraumatic, extraocular movements intact, neck supple Abdomen: soft, gravid, nontender, nondistended Uterus: fundus at umbilicus Extremities: full range of motion Skin: normal coloration, no rashes, no suspicious skin lesions noted Neurologic: cranial nerves 2-12 grossly intact, normal muscle tone, normal gait Psychiatric: smiling, cooperative, poor historian FHTs: present, age appropriate NST [place]: quiet Cvx: deferred Data Data Vital Signs Reviewed: Yes Orders Orders Urinalysis - C+S If Indicated (08/30/17 11:43) Labs Laboratory Tests Test 08/30/17 11:34 MDM Plan 22y/o @ 23.2wks with back pain. -- benign exam -- toco quiet -- UA with evidence of UTI -- recommend macrobid 100mg BID x7d -- FHTs age appropriate Dispo: d/c to inpt psychiatric [facility] Diagnosis Diagnosis: Primary Impression: 23 weeks gestation of Additional Impressions: Pelvic pain affecting Schizophrenia History of delivery Warren Gandhi MD Aug 30, 2017 12:38
== END 2017-08-30 12:45 ==
LOC: HOBED 11:16
DX: O26.892 Other specified pregnancy related conditions, second trimester (principal); R10.2 Pelvic and perineal pain; M54.9 Dorsalgia, unspecified; O99.342 Other mental disorders complicating pregnancy, second trimester; F20.9 Schizophrenia, unspecified; Z3A.23 23 weeks gestation of pregnancy
CPT/HCPCS: 81001; 87086; 99283

== ENCOUNTER 2017-12-24 09:27 | Inpatient (IN) ==
[2017-12-24] MEDS ORDERED: Acetaminophen 325 MG Tablet PO ONE (10:29)
--- NOTE | 2017-12-24 10:53 | ED ---
HPI General Chief Complaint: Psychiatric Symptoms Stated Complaint: Psych Screen Time Seen by Provider: 12/24/17 10:17 History of Present Illness HPI Narrative: Patient comes emergency department from [facility] under [place]. Per documentation patient was transferred here to receive additional psychiatric evaluation as she is out of their scope of practice secondary to recently reported . Patient denies any homicidal or suicidal ideations. There are no modifying factors. Patient states she is still having some vaginal bleeding from recent and having some mild tenderness around site. Denies any radiation of pain or other complaints. Patient reports was performed in [place]. Related Data Home Medications Medication Instructions Recorded Confirmed Haldol 10 mg PO BID 12/24/17 12/24/17 Allergies Allergy/AdvReac Type Severity Reaction Status Date / Time No Known Allergies Allergy Verified 12/24/17 09:56 Review of Systems ROS: all other systems reviewed are negative [facility] Medical History Medical History Acute exacerbation of chronic schizophrenia (Acute) Anxiety (Acute) Surgical History Surgical History Status post (Acute) Social History Social History Substance History: Past History Second Hand Smoke Exposure: No Smoking Status: Never smoker How Often Do You Have a Drink Containing Alcohol: Never Recent Travel in [place] within the Last 8 Weeks: No Recent Out of Country Travel within the Last 8 Weeks: No Immunization History Tetanus Immunization: <5 Years Exam Narrative Exam Narrative: GENERAL: Well-developed, well nourished, in no acute distress, and non-ill appearing. SKIN: Focused skin assessment warm and dry. Well-healing scar noted. No signs of infection. Nonerythematous, without drainage, and without induration. No crepitus. HEAD: Atraumatic. Normocephalic. EYES: Pupils equal and round. EOMI. No scleral icterus. No injection or drainage. ENT: No nasal bleeding or discharge. No JVD. Supple. No nuclear rigidity. CARDIOVASCULAR: Regular rate and rhythm. No murmur appreciated. RESPIRATORY: No accessory muscle use. No respiratory distress. Clear to auscultation. Breath sounds equal bilaterally. GASTROINTESTINAL: Abdomen soft, non-tender, nondistended, and no guarding. Hepatic and splenic margins not palpable. No pulsatile mass. MUSCULOSKELETAL: No obvious deformities. No clubbing. No cyanosis. No edema. Full range of motion. NEUROLOGICAL: Awake and alert. No obvious cranial nerve deficits. Motor grossly within normal limits. Normal speech. PSYCHIATRIC: Appropriate mood and affect; insight and judgment normal. Course Initial Documented Vital Signs Temperature 98.3 F 12/24/17 09:50 Pulse Rate 98 H 12/24/17 09:50 Respiratory Rate 20 12/24/17 09:50 Blood Pressure 122/83 12/24/17 09:50 Pulse Oximetry 98 12/24/17 09:50 Last Documented Vital Signs Temperature 98.3 F 12/24/17 09:50 Pulse Rate 98 H 12/24/17 09:50 Respiratory Rate 20 12/24/17 09:50 Blood Pressure 122/83 12/24/17 09:50 Pulse Oximetry 98 12/24/17 09:50 Medical Decision Making MDM Narrative Medical decision making narrative: Patient was seen and examined. Labs were obtained and reviewed. Patient medically cleared for further treatment and evaluation by psych. Final disposition per psych. Differential Diagnosis Differential Diagnosis: Homicidal, suicidal, Schizoaffective, bipolar, acute psychosis, metabolic disturbance, nonspecific mood disorder Lab Data Lab results reviewed: Yes I reviewed the patient's lab results. Result diagrams: 12/24/17 10:45 12/24/17 10:45 Lab Results 12/24/17 12/24/17 12/24/17 Range/Units 10:45 10:45 10:45 WBC 7.2 (4.0-11.0) th/mm3 RBC 4.60 (4.00-5.30) mil/mm3 Hgb 13.3 (11.6-15.3) gm/dL Hct 39.9 (35.0-46.0) % MCV 86.6 (80.0-100.0) fL MCH 28.9 (27.0-34.0) pg MCHC 33.3 (32.0-36.0) % RDW 13.8 (11.6-17.2) % Plt Count 271 (150-450) th/mm3 MPV 8.5 (7.0-11.0) fL Neut % (Auto) 68.1 (16.0-70.0) % Lymph % (Auto) 20.7 (9.0-44.0) % [place] % (Auto) 8.6 H (0.0-8.0) % Eos % (Auto) 2.0 (0.0-4.0) % Baso % (Auto) 0.6 (0.0-2.0) % Neut # (Auto) 4.9 (1.8-7.7) th/mm3 Lymph # (Auto) 1.5 (1.0-4.8) th/mm3 [place] # (Auto) 0.6 (0.0-0.9) th/mm3 Eos # (Auto) 0.1 (0.0-0.4) th/mm3 Baso # (Auto) 0.0 (0.0-0.2) th/mm3 WBC Differential . Differential Comment Auto diff final Sodium 140 (136-145) meq/L Potassium 4.0 (3.5-5.1) meq/L Chloride 108 H (98-107) meq/L Carbon Dioxide 23.2 (21.0-32.0) meq/L Anion Gap 9 (5-15) meq/L BUN 11 (7-18) mg/dL Creatinine 0.60 (0.50-1.00) mg/dL Estimated GFR Greater than 89 (>89) mL/min Random Glucose 71 L (74-106) mg/dL Calcium 8.6 (8.5-10.1) mg/dL Total Bilirubin 0.3 (0.2-1.0) mg/dL AST 16 (15-37) U/L ALT 27 (10-53) U/L Alkaline Phosphatase 115 (45-117) U/L Total Protein 7.7 (6.4-8.2) g/dL Albumin 2.9 L (3.4-5.0) g/dL TSH 0.689 (0.358-3.740) uIU/mL Urine Opiates Screen Neg (Neg) Ur Barbiturates Screen Neg (Neg) Ur Amphetamines Screen Neg (Neg) U Benzodiazepines Scrn Neg (Neg) Urine Cocaine Screen Neg (Neg) U Cannabinoids Screen Neg (Neg) Serum Alcohol Less than 3 (0-5) mg/dL Discharge Plan Discharge Disposition Patient Disposition: 30 Still Patient Discharge Details Diagnosis: Medical clearance for psychiatric admission Physicians Team ED Provider: Kellie Shepherd ED Midlevel Provider: Williams Olivarez Primary Care Provider: Primary Care Lashanda Pompa Rxs /Orders / Referrals /Forms Prescriptions: No Action Haldol 10 mg PO BID RF: 0 Status ED Status: Medically Cleared
[2017-12-24 11:05] LABS: Baso % (Auto) 0.6 % (0.0-2.0); Eos # (Auto) 0.1 th/mm3 (0.0-0.4); Hematocrit 39.9 % (35.0-46.0); Hemoglobin 13.3 gm/dL (11.6-15.3); Lymph # (Auto) 1.5 th/mm3 (1.0-4.8); Lymph % (Auto) 20.7 % (9.0-44.0); Mean Corpuscular HGB Conc 33.3 % (32.0-36.0); Mean Corpuscular Hemoglobin 28.9 pg (27.0-34.0); Mean Corpuscular Volume 86.6 fL (80.0-100.0); Mean Platelet Volume 8.5 fL (7.0-11.0); Mono # (Auto) 0.6 th/mm3 (0.0-0.9); Mono % (Auto) 8.6 % (0.0-8.0); Neut # (Auto) 4.9 th/mm3 (1.8-7.7); Neut % (Auto) 68.1 % (16.0-70.0); Platelet Count 271 th/mm3 (150-450); Red Cell Distribution Width 13.8 % (11.6-17.2); White Blood Count 7.2 th/mm3 (4.0-11.0)
[2017-12-24 11:11] LABS: Amphetamine Screen,Urine Neg (Neg); Barbiturate Screen,Urine Neg (Neg); Cannabinoid Screen,Urine Neg (Neg); Cocaine Screen,Urine Neg (Neg)
[2017-12-24 11:12] LABS: Opiate Screen,Urine Neg (Neg)
[2017-12-24 11:21] LABS: Alanine Aminotransferase 27 U/L (10-53); Albumin 2.9 g/dL (3.4-5.0); Anion Gap 9 meq/L (5-15); Aspartate Aminotransferase 16 U/L (15-37); Blood Urea Nitrogen 11 mg/dL (7-18); Calcium 8.6 mg/dL (8.5-10.1); Carbon Dioxide 23.2 meq/L (21.0-32.0); Chloride 108 meq/L (98-107); Glomerular Filtration Rate Greater Than 89 mL/min (>89); Glucose,Random 71 mg/dL (74-106); Sodium 140 meq/L (136-145)
[2017-12-24 11:32] LABS: Alkaline Phosphatase 115 U/L (45-117); Thyroid Stimulating Hormone 0.689 uIU/mL (0.358-3.740); Total Protein 7.7 g/dL (6.4-8.2)
[2017-12-24] MEDS ORDERED: LORazepam 1 MG Tablet PO PRN (14:59)
[2017-12-24] MEDS ORDERED: Haloperidol Inj 5 MG/ML Ampul IM PRN (14:59)
[2017-12-24] MEDS ORDERED: Aluminum/Magnesium/Simethacone Susp 30 ML UDC PO PRN (14:59)
[2017-12-24] MEDS: Acetaminophen 325 MG Tablet PO PRN ×2 (17:08→22:18)
[2017-12-25 11:04] LABS: Anion Gap 9 meq/L (5-15); Blood Urea Nitrogen 11 mg/dL (7-18); Calcium 9.1 mg/dL (8.5-10.1); Carbon Dioxide 23.6 meq/L (21.0-32.0); Chloride 108 meq/L (98-107); Glomerular Filtration Rate Greater Than 89 mL/min (>89); Glucose,Random 69 mg/dL (74-106); Potassium 3.8 meq/L (3.5-5.1); Sodium 141 meq/L (136-145)
[2017-12-25 11:05] LABS: Cholesterol 156 mg/dL (120-200); Triglycerides 154 mg/dL (42-150)
[2017-12-25 11:07] LABS: Chol/HDL Ratio 5.49 Ratio; HDL Cholesterol 28.4 mg/dL (40.0-60.0); LDL Cholesterol,Calculated 97 mg/dL (0-99)
[2017-12-25] MEDS: Acetaminophen 325 MG Tablet PO PRN (11:59)
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
[2017-12-25 17:56] LABS: Hemoglobin A1c 5.3 % (4.3-6.0)
--- NOTE | 2017-12-26 14:02 | P.PNPSY ---
Subjective Remarks: Patient seen for follow up; chart reviewed. Discussion with nursing staff reported the patient was noted to be somewhat labile last evening crying out loud on the phone with family. Patient was found lying hospital bed noted B, cooperative. Patient states that she had been in touch with family recently but did not elaborate. Patient noted be somewhat internally preoccupied during interview at times but denying any perceptional services. Patient states that she is eating and drinking well, she continues to have some vaginal bleeding which she states was told to be expected by her FURNITURE ASSOCIATE but has not worsened or become larger quantity. Patient states her mood has been "better", denying any SI or HI today. Patient reports having slept better last evening. Patient expresses interest in perhaps referral to a program such as [facility]. Review of Systems All other systems reviewed negative except as stated in HPI Mental Status Examination Appearance: Appropriate, Other (In [facility]) Consciousness: Alert Orientation: Person, Place, Date/Time Motor Activity: Normal gait Speech: Unremarkable Language: Adequate Fund of Knowledge: Inadequate Attention and Concentration: Adequate Memory: Unremarkable Mood: Other ("better today") Affect: Sad Thought Process & Associations: Intact, Linear Thought Content: Appropriate Hallucination Type: Auditory (denies but noted with some internal preoccupation) Delusion Type: Paranoid Suicidal Ideation: Yes (denies today) Suicidal Plan: No Suicidal Intention: No Homicidal Ideation: No Homicidal Plan: No Homicidal Intention: No Insight: Poor Judgment: Impulsive Assessment and Plan - Assessment (1) Schizophrenia Code(s): F20.9 - Schizophrenia, unspecified Status: Acute - Plan Plan: Patient this time continues to have some lability but able to maintain adequate behavioral control, no aggressive behavior. Has a compliant with treatment. Patient denies any auditory hallucinations although is noted to be slightly internally preoccupied during interview. Patient noted to be future oriented and requesting referral to [facility]. Continue current treatment. Continue to monitor mood and behavior. Discharge planning in progress. Justification for Continued Inpatient Stay: At risk for further decompensation if at lower level of care
[2017-12-26] MEDS: Acetaminophen 325 MG Tablet PO PRN (18:31)
--- NOTE | 2017-12-27 12:18 | P.PNPSY ---
Subjective Remarks: Patient was seen and case discussed with nursing. Patient is minimally engaged during the interview with a blunted affect. She has poor insight into her admission. Patient says that she no longer has auditory or visual hallucinations. She is concerned about her 2 kids. Ascribes her mood today is "good." He is compliant with her medications and behaving well on the unit. Patient denies suicidal or homicidal ideation intent or plan Mental Status Examination Appearance: Appropriate, Other (In [facility]) Consciousness: Alert Orientation: Person, Place, Date/Time Motor Activity: Normal gait Speech: Unremarkable Language: Adequate Fund of Knowledge: Inadequate Attention and Concentration: Adequate Memory: Unremarkable Mood: Other ("better today") Affect: Sad Thought Process & Associations: Intact, Linear Thought Content: Appropriate Hallucination Type: Auditory (denies but noted with some internal preoccupation) Delusion Type: Paranoid Suicidal Ideation: No (denies today) Suicidal Plan: No Suicidal Intention: No Homicidal Ideation: No Homicidal Plan: No Homicidal Intention: No Insight: Poor Judgment: Impulsive Assessment and Plan - Assessment (1) Schizophrenia Code(s): F20.9 - Schizophrenia, unspecified Status: Acute - Plan Plan: Continue current treatment plan Justification for Continued Inpatient Stay: Patient would decompensate in a less restrictive setting
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
[2017-12-28] MEDS: Acetaminophen 325 MG Tablet PO PRN (20:28)
--- NOTE | 2017-12-29 19:34 | P.PNPSY ---
Subjective Remarks: Patient seen for follow, chart reviewed. Discussion nursing staff reported the patient had been moved to 2700 unit after episode of agitation with nurse she had threatened verbally and on noted having episodes of crying after speaking with mother over the phone. Patient was found heavily on unit noted to be irritable, perseverative on discharge stating that she was to be discharged back to her mother's care. Patient noted to be irritable during interview stating that she is feeling fine, denies any perceptional disturbances but noted to be paranoid during interview with medical student and counselor. She states having spoken with her mother yesterday and that the plan is for her to be discharged to her home. Patient's mother had visited with the patient over the weekend and left a note for advertising copy writer stating that she does not feel patient is ready to come home at this time. Review of Systems All other systems reviewed negative except as stated in HPI Mental Status Examination Appearance: Appropriate, Other (In [facility]) Consciousness: Vigilant Orientation: Person, Place, Date/Time Motor Activity: Normal gait Speech: Unremarkable Language: Adequate Fund of Knowledge: Inadequate Attention and Concentration: Adequate Memory: Unremarkable Mood: Other ("fine") Affect: Irritable Thought Process & Associations: Intact, Goal directed Thought Content: Appropriate Hallucination Type: Auditory (denies but noted with some internal preoccupation) Delusion Type: Paranoid Suicidal Ideation: No (denies today) Suicidal Plan: No Suicidal Intention: No Homicidal Ideation: No Homicidal Plan: No Homicidal Intention: No Insight: Poor Judgment: Impulsive Assessment and Plan - Assessment (1) Schizophrenia Code(s): F20.9 - Schizophrenia, unspecified Status: Acute - Plan Plan: Patient continued with paranoia, labile mood, and recent verbal threats to staff when upset. We will continue to titrate Haldol to 10 mg a.m./15 mg at bedtime for psychosis. Continue to monitor mood and behavior. Patient had completed a right of release this afternoon which will be addressed tomorrow to determine whether patient meets [place] act criteria for further psychiatric hospitalization. Family meeting tomorrow with patient's mother. Discharge planning in progress. Justification for Continued Inpatient Stay: At risk for further decompensation if at lower level of care.
--- NOTE | 2017-12-30 17:16 | XR ---
EXAM DATE: 12/30/2017 5:10 PM EDT AGE/SEX: 22 years / Female INDICATIONS: Right sided rib pain post fall. CLINICAL DATA: This is the patient's initial encounter. Patient reports that signs and symptoms have been present for 1 day and indicates a pain score of 5/10. MEDICAL/SURGICAL HISTORY: . Schizophrenia. None. COMPARISON: No prior exams available for comparison. FINDINGS: There is no evidence of displaced fracture. No destructive lesions or areas of periosteal thickenin g are seen. No significant pneumothorax. Cardiomediastinal contours are within normal limits. CONCLUSION: 1. Negative rib series. No pneumothorax. Electronically signed by: Garcia Knight MD 12/30/2017 5:15 PM EDT
--- NOTE | 2017-12-30 19:35 | P.PNPSY ---
Subjective Remarks: Discussion nursing staff reported the patient signed an KELLIE arm, noted to be angry and irritable viable pages in her room. Patient was found lying hospital bed noted to be visibly upset, superficially engaging interview stating that she has been feeling "good" stating that she had receive medication last seen with help ease her mood (Atarax). Discussion of patient requiring more time for stabilization was reviewed which she acknowledged. Patient's mother met with treatment team later in the which she had expressed concern of having difficulty managing patient at home stating that her other son is currently living with her which there has been some conflict among the 2 siblings. Patient's mother also mentions that she does not feel comfortable having patient return back to the home and would like to continue to assist in perhaps referring patient to an assisted living facility or [facility]. Review of Systems All other systems reviewed negative except as stated in HPI Mental Status Examination Appearance: Appropriate, Other (In [facility]) Consciousness: Vigilant Orientation: Person, Place, Date/Time Motor Activity: Normal gait Speech: Unremarkable Language: Adequate Fund of Knowledge: Inadequate Attention and Concentration: Adequate Memory: Unremarkable Mood: Other ("not good") Affect: Irritable Thought Process & Associations: Intact, Goal directed Thought Content: Appropriate Hallucination Type: Auditory (denies but noted with some internal preoccupation) Delusion Type: Paranoid Suicidal Ideation: No (denies today) Suicidal Plan: No Suicidal Intention: No Homicidal Ideation: No Homicidal Plan: No Homicidal Intention: No Insight: Poor Judgment: Impulsive Assessment and Plan - Assessment (1) Schizophrenia Code(s): F20.9 - Schizophrenia, unspecified Status: Acute - Plan Plan: Patient this time continues with labile mood, poor impulse control, becomes agitated with speaking with mother over the phone and continue with paranoia regarding family attempting to take away her baby. Patient continues with limited insight and requiring further stabilization. We will start patient on Atarax 25 mg p.o. 3 times daily, continue Haldol. We will consider starting mood stabilizer such as Depakote to address mood lability as well as poor impulse control. We will continue to monitor mood and behavior. Discharge planning in progress. Justification for Continued Inpatient Stay: At risk of further decompensation a lower level of care.
[2017-12-31] MEDS: Divalproex 500 MG DR Tablet PO SCH ×2 (08:56→20:40)
--- NOTE | 2017-12-31 12:48 | P.PNPSY ---
Subjective Remarks: Patient seen for follow, chart reviewed. Discussion nursing staff reported the patient had episode last evening after becoming upset and talking over the phone with her mother which patient threw herself against a wall and having fallen on her right side which x-rays were ordered to rule out fractures. Patient was found this morning for interview lying hospital bed noted B, cooperative. Patient states that she had a "heart attack" yesterday which she had thrown herself against a wall and floor states feeling better today. Patient also requesting assistance with referral to [facility]. Patient denies any perceptual disturbances yet later during the day had endorsed to the nurse that she was continuing hearing voices. Patient denying suicidal homicidal ideations at this time. Patient continues with labile mood and poor impulse control. Review of Systems All other systems reviewed negative except as stated in HPI Mental Status Examination Appearance: Appropriate, Other (In [facility]) Consciousness: Vigilant Orientation: Person, Place, Date/Time Motor Activity: Normal gait Speech: Unremarkable Language: Adequate Fund of Knowledge: Inadequate Attention and Concentration: Adequate Memory: Unremarkable Mood: Other ("not good") Affect: Irritable Thought Process & Associations: Intact, Goal directed Thought Content: Appropriate Hallucination Type: Auditory (denies but noted with some internal preoccupation) Delusion Type: Paranoid Suicidal Ideation: No (denies today) Suicidal Plan: No Suicidal Intention: No Homicidal Ideation: No Homicidal Plan: No Homicidal Intention: No Insight: Poor Judgment: Impulsive Assessment and Plan - Assessment (1) Schizophrenia Code(s): F20.9 - Schizophrenia, unspecified Status: Acute - Plan Plan: Patient continues with labile mood, poor past control, although denied auditory hallucinations during interview had endorses to nursing staff. We will continue Haldol 10 mg a.m./50 mg at bedtime, we will start Depakote 500 mg p.o. twice daily for mood stabilization. We will discontinue Atarax 25 mg every 8 hours for now patient is with concerns of sedating effects of these medications at this time. Options have patient be referred to an assisted living facility will be discussed with patient in case [facility] has no availability for the patient. Continue to monitor mood and behavior. Discharge planning a progress. Justification for Continued Inpatient Stay: At risk for further decompensation if at lower level of care
[2018-01-01] MEDS: Divalproex 500 MG DR Tablet PO SCH ×2 (08:53→21:23)
--- NOTE | 2018-01-01 14:19 | P.PNPSY ---
Subjective Remarks: Patient seen for follow, chart reviewed. Discussion nursing staff reported the patient has not seclusive to her room, no behavioral disturbances recently. Patient states that he is feeling okay" continues to endorse auditory hallucinations yesterday but states that she has not experienced him this morning. She mentions that when she does have the voices do tell her that "never going to get out of here". Patient reports eating and drinking well no difficulty or bowel movement. Patient denies any physical complaints at this time. Review of Systems All other systems reviewed negative except as stated in HPI Mental Status Examination Appearance: Appropriate, Other (In [facility]) Consciousness: Vigilant Orientation: Person, Place, Date/Time Motor Activity: Normal gait Speech: Unremarkable Language: Adequate Fund of Knowledge: Inadequate Attention and Concentration: Adequate Memory: Unremarkable Mood: Other ("ok") Affect: Blunt Thought Process & Associations: Intact, Goal directed Thought Content: Appropriate Hallucination Type: Auditory (denies but noted with some internal preoccupation) Delusion Type: Paranoid Suicidal Ideation: No (denies today) Suicidal Plan: No Suicidal Intention: No Homicidal Ideation: No Homicidal Plan: No Homicidal Intention: No Insight: Poor Judgment: Impulsive Assessment and Plan - Assessment (1) Schizophrenia Code(s): F20.9 - Schizophrenia, unspecified Status: Acute - Plan Plan: Patient this time continues with some lability but no behavioral services today , continues to have auditory hallucinations which she last experienced yesterday. Patient tolerated medications well. We will order a valproic acid level for 01/03/18. Continue current treatment. Continue to monitor mood and behavior. Discharge planning in progress. Justification for Continued Inpatient Stay: At risk of further decompensation a lower level of care.
[2018-01-02] MEDS: Divalproex 500 MG DR Tablet PO SCH ×2 (09:01→20:56)
--- NOTE | 2018-01-02 14:11 | P.PNPSY ---
Subjective Remarks: Patient seen for follow, chart reviewed. Discussion nursing staff reported the patient has had good behavioral control, no episodes of agitations. Patient was found participating group activity noted B, cooperative. Patient states that she feels the medication is helping, and that her mom believes medication is also has improved her mood and behavior. Patient states that she had visited by mom which she states had an episode where she had become upset but in general is a good visit. Patient reports eating and drinking well, no problems sleeping, denying auditory hallucinations, reports tolerating medications well denying any SI or HI. Patient continues to be interested in [facility] but aware that assisted living facility may be likely. Review of Systems All other systems reviewed negative except as stated in HPI Mental Status Examination Appearance: Appropriate, Other (In [facility]) Consciousness: Vigilant Orientation: Person, Place, Date/Time Motor Activity: Normal gait Speech: Unremarkable Language: Adequate Fund of Knowledge: Inadequate Attention and Concentration: Adequate Memory: Unremarkable Mood: Other ("ok") Affect: Blunt Thought Process & Associations: Intact, Goal directed Thought Content: Appropriate Hallucination Type: Auditory (denies but noted with less internal preoccupation) Delusion Type: Paranoid (lessening) Suicidal Ideation: No (denies today) Suicidal Plan: No Suicidal Intention: No Homicidal Ideation: No Homicidal Plan: No Homicidal Intention: No Insight: Poor Judgment: Impulsive Assessment and Plan - Assessment (1) Schizophrenia Code(s): F20.9 - Schizophrenia, unspecified Status: Acute - Plan Plan: Patient this time noted with improved mood, denying any auditory hallucinations although is noted to be slightly internally preoccupied but able to interact appropriately during interview. Patient to continue current treatment. Patient scheduled for valproic acid level tomorrow morning. Continue to monitor mood and behavior. Discharge planning in progress. Justification for Continued Inpatient Stay: At risk of further decompensation at lower level of care.
[2018-01-03] MEDS: Divalproex 500 MG DR Tablet PO SCH ×2 (08:29→20:38)
--- NOTE | 2018-01-03 11:39 | P.PNPSY ---
Subjective Remarks: Pt seen and discussed with staff. Chart reviewed. She was admitted for psychosis and depression. She has been compliant with medications and tolerating them without side effects. Mood is improving and psychosis has remitted. Staff report that there are still some intermittent episodes of mood lability and agitation but these are lessening in intensity and frequency. Mental Status Examination Appearance: Appropriate, Other (In [facility]) Consciousness: Vigilant Orientation: Person, Place, Date/Time Motor Activity: Normal gait Speech: Unremarkable Language: Adequate Fund of Knowledge: Inadequate Attention and Concentration: Adequate Memory: Unremarkable Mood: Other ("ok") Affect: Blunt Thought Process & Associations: Intact, Goal directed Thought Content: Appropriate Hallucination Type: Auditory (mild internal preoccupation) Delusion Type: Paranoid (mild) Suicidal Ideation: No (denies today) Suicidal Plan: No Suicidal Intention: No Homicidal Ideation: No Homicidal Plan: No Homicidal Intention: No Insight: Poor Judgment: Impulsive Assessment and Plan - Assessment (1) Schizophrenia Code(s): F20.9 - Schizophrenia, unspecified Status: Acute - Plan Plan: Continue current tx plan Justification for Continued Inpatient Stay: risk of decompensation
[2018-01-04] MEDS: Divalproex 500 MG DR Tablet PO SCH ×2 (08:33→20:34)
--- NOTE | 2018-01-04 10:54 | P.PNPSY ---
Subjective Remarks: Pt seen and discussed with staff. Chart reviewed. Pt has been compliant with medications and is tolerating them without side effects. She became agitated and paranoid last night , and required haldol IM for safety. She reports that she was experiencing AH that were telling her she was going to be attacked. She states that AH have diminished and she is feeling better today. She has had no behavioral problems today. Mental Status Examination Appearance: Appropriate, Other (In [facility]) Consciousness: Vigilant Orientation: Person, Place, Date/Time Motor Activity: Normal gait Speech: Unremarkable Language: Adequate Fund of Knowledge: Inadequate Attention and Concentration: Adequate Memory: Unremarkable Mood: Other ("ok") Affect: Blunt Thought Process & Associations: Intact, Goal directed Thought Content: Appropriate Hallucination Type: Auditory (mild internal preoccupation) Delusion Type: Paranoid (mild) Suicidal Ideation: No (denies today) Suicidal Plan: No Suicidal Intention: No Homicidal Ideation: No Homicidal Plan: No Homicidal Intention: No Insight: Poor Judgment: Impulsive Assessment and Plan - Assessment (1) Schizophrenia Code(s): F20.9 - Schizophrenia, unspecified Status: Acute - Plan Plan: Continue current tx plan Justification for Continued Inpatient Stay: impairments in reality testing
[2018-01-05] MEDS: Divalproex 500 MG DR Tablet PO SCH ×2 (08:12→20:28)
--- NOTE | 2018-01-05 16:23 | P.PNPSY ---
Subjective Remarks: Patient seen for follow, chart reviewed. Discussion nursing staff reported the patient compliant with medications have been social and appropriate. Patient was found in day room noted to be calm, cooperative. Patient states that she had requested medications over the weekend and once for having auditory visual hallucinations but states that after she received treatment that had not recurred stating that she has not had any recent auditory visual hallucinations stating that her mood has been "good". Patient states having visited by her mother and believes that she is doing better. Patient expecting a visit from technology sales representative from an assisted living facility which may be accepting patient upon discharge. She reports adequate appetite with no difficulty with bowel movement. Patient denies any SI or HI at this time. Patient recent valproic acid level was within therapeutic range (71). Review of Systems All other systems reviewed negative except as stated in HPI Mental Status Examination Appearance: Appropriate, Other (In [facility]) Consciousness: Vigilant Orientation: Person, Place, Date/Time Motor Activity: Normal gait Speech: Unremarkable Language: Adequate Fund of Knowledge: Inadequate Attention and Concentration: Adequate Memory: Unremarkable Mood: Other ("ok") Affect: Blunt Thought Process & Associations: Intact, Goal directed Thought Content: Appropriate Hallucination Type: Auditory (mild internal preoccupation) Delusion Type: Paranoid (mild) Suicidal Ideation: No (denies today) Suicidal Plan: No Suicidal Intention: No Homicidal Ideation: No Homicidal Plan: No Homicidal Intention: No Insight: Poor Judgment: Impulsive Assessment and Plan - Assessment (1) Schizophrenia Code(s): F20.9 - Schizophrenia, unspecified Status: Acute - Plan Plan: Patient this time continues to have some mild internal preoccupation as well as an episode over the weekend which patient was endorsing auditory visual hallucinations which she required ETO x1. We will increase Haldol to 15 mg p.o. twice daily for psychosis. We will continue rest of medications. We will continue to monitor mood and behavior. Discharge planning in progress. Justification for Continued Inpatient Stay: At risk of further decompensation a lower level of care. Discharge Planning: Patient likely to be discharged to an assisted living facility once accepted, awaiting meeting with [employer] technology sales representative today.
[2018-01-06] MEDS: Divalproex 500 MG DR Tablet PO SCH ×2 (08:53→20:20)
--- NOTE | 2018-01-06 16:12 | P.PNPSY ---
Subjective Remarks: Patient seen for follow up; chart reviewed. Discussion with nursing staff reported that the patient with no behavioral disturbances, had visit with her mother. Patient was found lying on hospital bed, calm and cooperative. Patient states that she has been feeling "good", had visit with her mother which went well and feels that she is doing better. She states that she was not visited by the career representative from the [facility] yesterday and is hopeful to meet with her today. She denies any further recurrence of AH, denies any physical complaints at this time and tolerating medications well. Review of Systems All other systems reviewed negative except as stated in HPI Mental Status Examination Appearance: Appropriate, Other (In [facility]) Consciousness: Vigilant Orientation: Person, Place, Date/Time Motor Activity: Normal gait Speech: Unremarkable Language: Adequate Fund of Knowledge: Inadequate Attention and Concentration: Adequate Memory: Unremarkable Mood: Other ("good") Affect: Blunt (occasional smiling) Thought Process & Associations: Intact, Goal directed Thought Content: Appropriate Hallucination Type: None Delusion Type: Paranoid (mild) Suicidal Ideation: No Suicidal Plan: No Suicidal Intention: No Homicidal Ideation: No Homicidal Plan: No Homicidal Intention: No Insight: Fair Judgment: Impulsive Assessment and Plan - Assessment (1) Schizophrenia Code(s): F20.9 - Schizophrenia, unspecified Status: Acute - Plan Plan: Patient with continued improvement, denies any further AH. Continue current treatment, continue to monitor mood and behavior. Patient to be visited by career representative from [facility] pending. Once patient seen and accepted, patient will be discharged to that facility. Discharge planning in progress. Justification for Continued Inpatient Stay: At risk for further decompensation at lower level of care.
[2018-01-07] MEDS: Divalproex 500 MG DR Tablet PO SCH (07:59)
--- NOTE | 2018-01-07 21:10 | P.DSPSY ---
Psychiatry Discharge Summary Inpatient Psychiatric care?: Yes Advance Directives: No Mental Health Advance Directive: No Health Care Proxy: No - Admission Admission Date: December 24, 2017 15:03 - Admission Diagnosis (1) Schizophrenia Code(s): F20.9 - Schizophrenia, unspecified Brief History: The patient is a 22 year-old [place] woman, single, has one child who lives with the child's father, recently have to son, unemployed on SSI, recently homeless, with past psychiatric history of schizophrenia, alcohol use disorder, polysubstance use in remission, multiple psychiatric admissions, last admission here at [facility] in September 2017, discharged in Haldol 10 mg twice daily, prior suicide attempt, history of aggressive behavior and poor impulse control, recent delivery via , who was brought in under [place] and admitted to [facility] inpatient unit initially which patient was transferred to [facility] ED stating that patient was out of their scope of practice and was subsequently admitted to the inpatient psychiatry unit for further evaluation and management. Discussion with nursing staff reported that the patient had endorse suicide ideations stating that she had been crying all morning he was brought in by her mother. Patient was found ambulating on the unit noted to be calm and cooperative. Patient states that she had relationship discord with her mother which patient had moved into a friend's home temporarily which patient had arguments with people there which her mother had recommended patient to come to the hospital. She states that she had been having some difficulty with her mother previously has her mother has been wanting patient to maintain therapy follow-up and patient wanted to complete her education. She states that her mother believes that she does not want to continue therapy but states the contrary stating that she is motivated to continue therapy but also wants to finish her academics. Patient also expresses some paranoid ideation stating that she fears her mother may want to quit her baby. She states that her mood has been feeling sad as well as having suicide ideations when she left her mother's house which returns intermittently when she thinks about being homeless but states that she has not acted on these ideations thinking about her children. She does not plan to return back to her friend's home due to arguments there and unsure of where she will be going post discharge. Patient states that when she was at on the inpatient unit at [facility] she felt that staff wanted to kiss her which she states had bothered her and had taken off her clothes as well as having become upset and not wanting to accept any medications and had her herself by pushing herself in the face and punched a window wanting to leave stating that she did not feel safe there. Patient also mentions having receive ETO at [facility] prior to her arrival here to [facility]. Currently she reports feeling sad due to her current psychosocial circumstances continued, continues to endorse suicide ideations "sometimes but not that bad" but denying any perceptional disturbances or delusions at this time. Patient agrees to resume treatment. Family psychiatric history: She denies family psychiatric history Past psychiatric history: prior psychiatric diagnosis of schizophrenia, multiple psychiatric admissions, previous suicide attempt (2016), recent treatment include haldol decanoate 100mg every 3-4 weeks but most recently, last received on 12/16/17 at her outpatient clinic. Substance use history: Occasional use of alcohol, denies any recent illegal drug , but reports having had previous polysubstance use prior to her a year ago. Past medical history: Recent delivery of child on 12/15/17 Allergies: NKDA Social history: The patient was born and raised in [place], she is single, has one child who lives with the child's father, recently given to a infant son, currently still hospitalized, unemployed on [employer] , she is homeless, her highest level of education is 10th grade Tobacco Use In Past 30 Days: Yes How Often Do You Have a Drink Containing Alcohol: Monthly or less Hospital Course: The patient is a 22 year-old [place] woman, single, has one child who lives with the child's father, recently have to infant son, unemployed on [employer], recently homeless, with past psychiatric history of schizophrenia, alcohol use disorder, polysubstance use in remission, multiple psychiatric admissions, last admission here at [facility] in September 2017, discharged in Haldol 10 mg twice daily, prior suicide attempt, history of aggressive behavior and poor impulse control, recent delivery via , who was brought in under [place] and admitted to [facility] inpatient unit initially which patient was transferred to [facility] ED stating that patient was out of their scope of practice and was subsequently admitted to the inpatient psychiatry unit for further evaluation and management. Patient was started on Haldol and titrated to 15mg PO BID and Depakote 500mg PO BID for mood stabilization which she tolerated well with no notable adverse drug reactions. She was noted to have poor impulse control initially which he was given ETO and transferred to a more acute unit for safety. Patient was noted to improved mood and stabilization of mood and was noted to longer respond to internal stimuli with cessation of perceptual disturbances. She was observed by staff to not have had any further behavioral disturbances, not having made any suicidal or homicidal statements and maintained stable mood through admission and was noted to participate with staff adequately. Upon discharge patient stated that she was feeling good, reported well with the treatment, continued with baseline confusion, denied any SI, HI, perceptual disturbances or delusions. Weighing the acute, chronic, and protective factors and based on the available evidence, I game protector to a reasonable degree of medical certainty that the patient is at low imminent risk of harm to self or others from a mental illness as defined under the [place] and his level of function is adequate as observed on the unit for planned level of outpatient care. She was counseled regarding warning signs for need to return to the psychiatric emergency room as part of a general safety plan. Patient advised to call 911 or go nearest ED in case of emergency. Patient agreed with plan. - Discharge Discharge Date: 01/07/18 - Discharge Diagnosis (1) Schizophrenia Code(s): F20.9 - Schizophrenia, unspecified Status: Acute Discharge Disposition: Home - Discharge Instructions Discharge Diet: Regular Diet Activities You Can Perform: Regular- No Restrictions - Discharge Time > 30 minutes Mental Status Examination Appearance: Appropriate, Other (In [facility]) Consciousness: Vigilant Orientation: Person, Place, Date/Time Motor Activity: Normal gait Speech: Unremarkable Language: Adequate Fund of Knowledge: Inadequate Attention and Concentration: Adequate Memory: Unremarkable Mood: Other ("good") Affect: Appropriate Thought Process & Associations: Intact, Goal directed Thought Content: Appropriate Hallucination Type: None Delusion Type: None Suicidal Ideation: No Suicidal Plan: No Suicidal Intention: No Homicidal Ideation: No Homicidal Plan: No Homicidal Intention: No Insight: Fair Judgment: Impulsive Discharge/Advance Care Plan - Results Vital Signs: Last Vital Signs Temp 97.4 F L 01/07/18 05:37 Pulse 74 01/07/18 05:37 Resp 17 01/07/18 05:37 BP 99/62 L 01/07/18 05:37 Pulse Ox 99 01/07/18 05:37 Lab Results: Laboratory Results Hemoglobin A1c 5.3 % (4.3-6.0) 12/25/17 09:46 Triglycerides 154 mg/dL (42-150) H 12/25/17 09:46 Cholesterol 156 mg/dL (120-200) 12/25/17 09:46 LDL Cholesterol, Calc 97 mg/dL (0-99) 12/25/17 09:46 HDL Cholesterol 28.4 mg/dL (40.0-60.0) L 12/25/17 09:46 TSH 0.689 uIU/mL (0.358-3.740) 12/24/17 10:45 Valproic Acid 71 mcg/mL (50-100) 01/03/18 08:28 Summary of Procedures: none Imaging: ITS Impressions Ribs X-Ray 12/30/17 00:00 CONCLUSION: 1. Negative rib series. No pneumothorax. Pending Results: None - Medications Number of antipsychotic medications at discharge: 1 - Discharge Care Plan Goals to Promote Your Health: * To prevent worsening of your condition and complications * To maintain your health at the optimal level Directions to Meet Your Goals: Take your medications as prescribed Follow your dietary instruction Follow activity as directed Keep your appointments as scheduled Take your immunizations and boosters as scheduled If your symptoms worsen call your PCP, if no PCP go to Urgent Care Center or Emergency Room For 09/12 questions related to your inpatient stay or results of tests pending at discharge, please contact Dr. Pedro Narvaez MD at Smoking is Dangerous to Your Health. Avoid second hand smoking
== END 2018-01-07 13:15 ==
LOC: NEPD 09:27 → NEDA 15:03 → H260 15:43 → H270 12-27 17:03
PROVIDERS: ADMIT Student in an Organized Health Care Education/Training Program; ATTEND Student in an Organized Health Care Education/Training Program